=== PATIENT | male | born 1980 | race Hispanic/Latino ===

== ENCOUNTER → 2025-02-02 | Outpatient (CLI) | payer BC ==
[~2025-02-02] MED LIST: DIATR MEGLU/DIATRIZOATE SODIUM 30 ML BOTTLE ONE; IOHEXOL 350 MG/ML 100ML INFUS..BTL IV ONE
--- NOTE | 2025-02-03 02:56 | HMCIMG ---
EXAM: CT ABDOMEN AND PELVIS W/WO IV CONTRAST CLINICAL HISTORY: left lower quadrant pain. TECHNIQUE: Axial computed tomography images of the abdomen and pelvis without and with intravenous contrast. The protocol utilizes one or more of the following dose reduction techniques: automated exposure control, adjustments of mA and/or kV according to patient size, and/or use of iterative reconstruction technique. CONTRAST: 99 mL of intravenous contrast was administered. COMPARISON: None. FINDINGS: LOWER CHEST: The lung bases appear clear. No cardiomegaly or pericardial effusion observed. LIVER: Fatty infiltration of the liver. The liver measures 17.2 cm. GALLBLADDER AND BILIARY TREE: No calcified gallstones. There is no gallbladder distension or wall edema. No intra- or extrahepatic biliary ductal dilatation. PANCREAS: No focal cystic or solid mass. SPLEEN: Normal size without focal cystic or solid mass. ADRENAL GLANDS: Non-enlarged. KIDNEYS AND URETERS: Normal renal size and position. There is no hydronephrosis or nephrolithiasis. The delayed 7 minutes images show normal contrast excretion through the both renal pelvicalyceal system and ureters without hydroureteronephrosis. URINARY BLADDER: Mild thickening of the urinary bladder wall measuring up to 5 mm with perivesical fat stranding. No communication with the urinary bladder. REPRODUCTIVE ORGANS: No pelvic masses or pelvic ascites. BOWEL: The appendix is unremarkable, series 2, image [id number]. There are colonic diverticula. There is thickening of the sigmoid colonic wall with a maximum thickness of 1.7 cm. Intramural abscess with air fluid level measuring 2 x 1 x 1.5 cm is present within the sigmoid colonic wall, series 2, image [id number]/113. Surrounding extensive pericolonic fat stranding is present. There is no extraluminal air/abscess formation. LYMPH NODES: Not enlarged mesenteric or retroperitoneal lymph nodes. PERITONEUM: No ascites or free air. No other fluid collection. VESSELS: Aorta is non-dilated. ABDOMINAL WALL: There is an umbilical hernia containing fat with a defect measuring 1 cm in width. BONES: No lytic or blastic abnormality observed. Degenerative changes present in the lower lumbar spine. There is grade I spondylolisthesis at L5-S1 level with bilateral L5 spondylolysis. IMPRESSION: 1. Acute sigmoid diverticulitis with intramural abscess. No extraluminal air or abscess. 2. Mild acute cystitis. Confirmation with urine analysis is recommended. /Dominick
== END | disposition home or self-care (01) ==
LOC: RAH 11:25
PROVIDERS: ATTEND Family Medicine
DX: K57.20 Diverticulitis of large intestine with perforation and abscess without bleeding (principal); K76.0 Fatty (change of) liver, not elsewhere classified; N30.00 Acute cystitis without hematuria; L02.91 Cutaneous abscess, unspecified; M47.816 Spondylosis without myelopathy or radiculopathy, lumbar region; M43.17 Spondylolisthesis, lumbosacral region; K42.9 Umbilical hernia without obstruction or gangrene; R10.32 Left lower quadrant pain
CPT/HCPCS: 74178; Q9963; Q9967